=== PATIENT | male | born 1960 | race Caucasian/White ===

== ENCOUNTER 2021-03-10 16:13 | Emergency (ER) | payer MEDICARE, OTHER ==
[2021-03-10] MEDS ORDERED: ZITHROMAX250 MG PO (19:10)
[2021-03-10] MEDS ORDERED: PROVENTIL HFA6.7 GM INH (19:10)
[2021-03-10] MEDS ORDERED: DECADRON6 MG PO (19:10)
== END 2021-03-10 19:20 | disposition home or self-care (01) ==
LOC: ER1 16:13
DX: U07.1 COVID-19 (principal); I10 Essential (primary) hypertension
CPT/HCPCS: 71045; 99283; U0002

== ENCOUNTER 2021-03-11 15:48 | Emergency (ER) | payer MEDICARE, OTHER ==
[~2021-03-11 15:48] MED LIST: DECADRON6 MG PO; PROVENTIL HFA6.7 GM INH; ZITHROMAX250 MG PO
== END 2021-03-11 18:22 | disposition home or self-care (01) ==
LOC: ER1 15:48
DX: U07.1 COVID-19 (principal); I10 Essential (primary) hypertension
CPT/HCPCS: 99283